=== PATIENT | male | born 1940 | race Caucasian/White ===

== ENCOUNTER 2017-06-08 14:49 | Emergency (ER) | payer MEDICARE, OTHER ==
[2017-06-08] MEDS ORDERED: ONDANSETRON HCL/PF 2 MG/ML VIAL IV ONE (14:59)
[2017-06-08] MEDS ORDERED: NORMAL SALINE 1,000 ML IV ONE (15:00)
[2017-06-08] MEDS ORDERED: ONDANSETRON HCL/PF 2 MG/ML VIAL ONE (15:11)
[2017-06-08 15:22] LABS: Hematocrit 46.3 % (42.0-52.0); Hemoglobin 15.3 gm/dL (13.5-18.0); Mean Cell Volume 81.9 fl (78-100); Mean Corpuscular Hemoglobin 27.1 pg (27-31); Mean Platelet Volume 11.3 fl (6.0-9.5); Neutrophil # 8.7 K/mm3 (1.3-6.0); Neutrophil % 88.4 % (42-75.0); Platelet Count 156 K/mm3 (150-450); Red Blood Count 5.65 M/mm3 (4.7-6.0); Red Cell Distribution Width 13.5 % (11.5-14.0); White Blood Count 9.9 K/mm3 (4.0-10.5)
[2017-06-08 15:46] LABS: Troponin I Less than 0.017 ng/ml (0.00-0.10)
[2017-06-08 15:47] LABS: ALT 26 U/L (19-67); AST 18 U/L (0-48); Albumin * 3.2 gm/dl (3.4-5.0); Alkaline Phosphatase * 89 U/L (50-170); Amylase * 43 U/L (25-115); Anion Gap 10.2 mmol/L (6.8-13.8); BNP * 1772 pg/mL (5-650); BUN/Creatinine Ratio 21.2 (9.0-21.6); Bilirubin, Total 1.2 mg/dL (0.0-1.1); Blood Urea Nitrogen 25 mg/dL (6-23); Ca. Corrected For Albumin 8.4 mg/dL (8.4-10.2); Calcium * 8.1 mg/dL (7.9-10.9); Carbon Dioxide 29.8 mmol/L (24-32.6); Chloride 107 mmol/L (97-106); Glucose * 151 mg/dL (70-110); Lipase 69 U/L (73-393); Sodium 142 mmol/L (132-142); Total Protein 7.1 gm/dL (6.2-8.2)
[2017-06-08 16:22] LABS: Urine Appearance Clear; Urine Bilirubin Negative (NEGATIVE); Urine Color Yellow; Urine Ketone Negative (NEGATIVE); Urine Nitrite Negative (NEGATIVE); Urine Protein 15 mg/dL (NEGATIVE); Urine Urobilinogen Normal (NORMAL); Urine pH 6.5 pH (5.0-7.0)
[2017-06-08 16:23] LABS: Urine Bacteria None Seen; Urine RBC 0-5 /hpf (0-5); Urine WBC None Seen /hpf (0-5)
[2017-06-08 16:25] LABS: Urine Blood 10 /ul (NEGATIVE)
--- NOTE | 2017-06-08 16:52 | ERNOTE ---
Medical Problem HPI - Narrative Date of Service: 06/08/17 - General Chief Complaint: Nausea/Vomiting Time Seen by Provider: 06/08/17 15:10 Source: patient, family Exam Limitations: no limitations - Immun/Allergies/Home Medications Immunizations: IMMUNIZATION HX Immunizations Up to Date Yes History of Influenza Vaccine No Hx Pneumococcal Vaccination No Allergies/Adverse Reactions: Allergies mupirocin [From Bactroban] Adverse Reaction (Mild, Verified 06/08/17 15:16) Headache Bactroban intranasal caused a moderately severe headache. mupirocin calcium [From Bactroban] Adverse Reaction (Mild, Verified 06/08/17 15: 16) Headache Bactroban intranasal caused a moderately severe headache. Home Medications: HOME MEDICATIONS Pantoprazole Sodium [Protonix] 40 mg PO DAILY 07/14/13 [Last Taken Unknown] Tamsulosin HCl [Flomax] 0.4 mg PO DAILY 07/14/13 [Last Taken Unknown] Warfarin Sodium [Coumadin] 1 mg PO MOTH 07/14/13 [Last Taken Unknown] Polyethylene Glycol 3350 [Miralax] 8.5 gm PO DAILY 08/15/15 [Last Taken Unknown] Warfarin Sodium [Coumadin] 2 mg PO SUTUWEFRSA 08/15/15 [Last Taken Unknown] Acetaminophen [Tylenol] 650 mg PO QID PRN #0 tablet 08/16/15 [Last Taken Unknown ] Digoxin [Lanoxin] 0.25 mg PO DAILY #30 tablet 08/16/15 [Last Taken Unknown] Ferrous Sulfate 325 mg PO DAILY tablet 08/16/15 [Last Taken Unknown] Finasteride [Proscar] 5 mg PO DAILY tablet 08/16/15 [Last Taken Unknown] Metoprolol Tartrate [Lopressor] 2 tab PO BID #120 tablet 08/16/15 [Last Taken Unknown] Multivit-Min/FA/Lycopen/Lutein [[facility]] 1 tab PO DAILY tablet 08/16/15 [Last Taken Unknown] Nitroglycerin [Nitrostat] 0.4 mg SL PRN PRN #0 btl 08/16/15 [Last Taken Unknown] Ranitidine HCl [Zantac] 300 mg PO HS #30 tab 08/16/15 [Last Taken Unknown] Sodium Chloride/Aloe Vera [[place] Saline Nasal Gel] 1 appl TP BID #1 tube 08/16/15 [Last Taken Unknown] oxyCODONE HCL/ACETAMINOPHEN [Percocet 5 MG/325 MG] 1 tab PO Q6H PRN #0 tablet [Last Taken Unknown] Diphenoxylate HCl/Atrop Sulf [Lomotil] 2.5 mg PO QID PRN #30 tablet 06/08/17 [ Last Taken Unknown] Ondansetron [Zofran Odt] 4 mg PO Q6H PRN #20 tab 06/08/17 [Last Taken Unknown] - History of Present History Narrative: woke up last evening with nausea and vomiting and diarrhea Timing: constant, getting worse Severity: moderate Modifying Factors - (Improves): Present: other - nothing improves Modifying Factors - (Worsens): Present: eating Review of Systems - Narrative Narrative: unremarkable - Review of Systems Constitutional: Present: See HPI EYE: Present: no symptoms reported ENT: Present: no symptoms reported Respiratory: Present: no symptoms reported Cardiology: Present: no symptoms reported Gastrointestinal/Abdominal: Present: nausea, vomiting, diarrhea Genitourinary: Present: no symptoms reported Musculoskeletal: Present: no symptoms reported Skin: Present: no symptoms reported Neurological: Present: no symptoms reported Endocrine: Present: no symptoms reported Hematologic/Lymphatic: Present: no symptoms reported Psych: Present: no symptoms reported All Other Systems: All systems neg except as marked - Narrative Narrative: unremarkable - Patient's Past Medical History Patient History - Medical: Anemia, GERD Patient History - Cardiac/Respiratory: Atrial Fibrillation Patient History - Cancer: Melanoma Patient History - Surgical Procedures: T & A, Other Patient History - Other: None - Family History Family History:: no untoward family reactions to anesthesia, no familial bleeding tendencies, no family history of clotting disorders, no family history of premature - Family History Mother Family History - Medical: Family History - Cardiac/Respiratory: CVA/Stroke Family History - Cancer: No pertinent family hx Father Family History - Medical: Family History - Cardiac/Respiratory: CVA/Stroke, Other Brother Family History - Medical: History Unknown Family History - Cardiac/Respiratory: Atrial Fibrillation Family History - Cancer: No pertinent family hx Sister Family History - Medical: Diabetes Type 2 Family History - Cancer: No pertinent family hx - Social History Living Situations: home Abuse History: No History of abuse Psych History: No pertinent hx Smoking Status: Never smoker Have you smoked in the past 12 months: No Do you dip or chew tobacco: No Alcohol Use: none Drug Use: none - Immunizations Immunizations Up to Date: Yes Hx Pneumococcal Vaccination: No History of Influenza Vaccine: No Physical Exam - Physical Exam General Appearance: Present: mild distress Head Exam: Present: normal inspection, no evidence of injury Eye Exam: Normal inspection: bilateral, PERRL: bilateral, EOMI: bilateral, Conjunctivae pale: bilateral Ears, Nose, Throat: Present: normal ENT inspection Neck: Present: normal inspection, nontender Respiratory: Present: no respiratory distress, normal breath sounds, no accessory muscle use, chest nontender, lungs clear Cardiovascular/Chest: Present: regular rate, rhythm, no murmur, normal peripheral pulses Peripheral Pulses: N=norm/S=strong/W=weak/B=bound/A=absent: Carotid (R): Normal , Carotid (L): Normal, Radial (R): Normal, Radial (L): Normal, Femoral (R): Normal, Femoral (L): Normal, Dorsalis-pedis (R): Normal Gastrointestinal/Abdominal: Present: nontender, soft, abnormal bowel sounds, distended Back Exam: Present: normal inspection, normal range of motion, no CVA tenderness , no vertebral tenderness Extremity Exam: Present: normal inspection, non-tender, normal range of motion, no edema Neurological Exam: Present: alert, oriented, normal mood/affect, no motor/ sensory deficits Skin Exam: Present: normal color, warm/dry Lymphatic Exam: Present: no adenopathy ED Progress - Date and Time Seen: Date and Time: 06/08/17 16:47 condition improved, - Results and Orders Patient's Lab Results:: I have reviewed the patient's lab results. - Vital Signs Patient's Vital Signs:: I have reviewed the patient's vital signs. Vital Signs: Vital Signs 06/08/17 06/08/17 14:54 16:22 Temperature 37.5 C 37.1 C Pulse Rate 82 85 Respiratory 19 20 Rate Blood Pressure 137/83 140/83 O2 Sat by Pulse 98 98 Oximetry - EKG EKG: atrial fibrillation - X-Ray X-Ray #2 X-Ray: abdomen - no acute process abdomen no acute process - Progress/Reassessment Chief Complaint: Nausea/Vomiting Progress:: Improved - Transfer of Care Expected Disposition: Discharge Plan - Plan Plan: to be discharged Departure Clinical Impression: Infectious colitis, enteritis, and gastroenteritis - Departure Disposition: Home self-care Condition: Fair Instructions: Viral Gastroenteritis, Adult, [id number] Prescriptions: Diphenoxylate HCl/Atrop Sulf [Lomotil] 2.5 mg PO QID PRN #30 tablet PRN Reason: Diarrhea Ondansetron [Zofran Odt] 4 mg PO Q6H PRN #20 tab PRN Reason: Nausea
[2017-06-08 17:15] VITALS: BP 140/90
== END 2017-06-08 17:17 | disposition home or self-care (01) ==
LOC: ER 14:49
DX: A09 Infectious gastroenteritis and colitis, unspecified (principal); K52.9 Noninfective gastroenteritis and colitis, unspecified
CPT/HCPCS: 36415; 71020; 74020; 80053; 81001; 82150; 83690; 83880; 84484; 85025; 93005; 96374; 99284; J2405; 71046; 74019; 83519